=== PATIENT | male | born 1990 | race Two or more races ===

== ENCOUNTER → 2017-02-04 | Outpatient (CLI) | payer OTHER ==
[2017-02-04 12:43] LABS: HEPATITIS C VIRUS ANTIBODY Nonreactive (Nonreactive)
[2017-02-06 16:07] LABS: TESTOSTERONE FREE DIRECT 14.6 pg/mL (9.3-26.5); TESTOSTERONE TOTAL 309 ng/dL (348-1197)
== END | disposition home or self-care (01) ==
LOC: LAB 09:08
PROVIDERS: ATTEND Internal Medicine
DX: Z12.11 Encounter for screening for malignant neoplasm of colon (principal); Z13.220 Encounter for screening for lipoid disorders; Z12.5 Encounter for screening for malignant neoplasm of prostate; R53.82 Chronic fatigue, unspecified; M25.512 Pain in left shoulder; E29.1 Testicular hypofunction; R74.0 Nonspecific elevation of levels of transaminase and lactic acid dehydrogenase [LDH]
CPT/HCPCS: 36415; 80074; 80076; 82728; 83540; 83550; 84402; 84403; 84466

== ENCOUNTER → 2017-07-28 | Outpatient (CLI) | payer OTHER ==
[2017-07-28 10:18] LABS: HEMATOCRIT 46.5 % (39.2-51.8); HEMOGLOBIN 16.3 g/dL (13.7-18.0); WHITE BLOOD COUNT 5.8 x10^3/uL (3.4-10)
[2017-07-30 16:07] LABS: TESTOSTERONE FREE DIRECT 15.1 pg/mL (9.3-26.5)
== END | disposition home or self-care (01) ==
LOC: LAB 09:37
PROVIDERS: ATTEND Physician Assistant
DX: Z13.220 Encounter for screening for lipoid disorders (principal); Z12.11 Encounter for screening for malignant neoplasm of colon; Z12.5 Encounter for screening for malignant neoplasm of prostate; R53.82 Chronic fatigue, unspecified; E78.5 Hyperlipidemia, unspecified; M75.22 Bicipital tendinitis, left shoulder; M79.604 Pain in right leg; J30.9 Allergic rhinitis, unspecified; R74.0 Nonspecific elevation of levels of transaminase and lactic acid dehydrogenase [LDH]
CPT/HCPCS: 36415; 80061; 84153; 84402; 84403; 85025; G0103

== ENCOUNTER 2018-04-30 21:48 | Emergency (ER) | payer OTHER ==
[~2018-04-30] VITALS: Ht 175.3 cm; Wt 129.4 kg
[2018-04-30] MEDS ORDERED: DEXAMETHASONE 4 MG/ML, 1ML PO ONE (22:30)
[2018-04-30] MEDS ORDERED: ACETAMINOPHEN 325 MG TABLET PO ONE (22:30)
[2018-04-30] MEDS ORDERED: SODIUM CHLORIDE 0.9% 1,000ML IVBOLUS ONE (22:30)
[2018-04-30] MEDS ORDERED: KETOROLAC 30 MG/1 ML IVPush ONE (22:30)
[2018-04-30] MEDS ORDERED: DEXAMETHASONE 4 MG TABLET ONE (22:32)
[2018-04-30] MEDS ORDERED: KETOROLAC 30 MG/1 ML ONE (22:32)
[2018-04-30] MEDS ORDERED: ACETAMINOPHEN 500 MG TABLET ONE (22:32)
[2018-05-01 00:11] VITALS: BP 134/75
== END 2018-05-01 00:13 | disposition home or self-care (01) ==
LOC: ED 23:59
DX: J02.8 Acute pharyngitis due to other specified organisms (principal); B97.89 Other viral agents as the cause of diseases classified elsewhere; J45.909 Unspecified asthma, uncomplicated
CPT/HCPCS: 87081; 87880; 96374; 99284; J1100; J1885; J7030

== ENCOUNTER → 2019-04-06 | Outpatient (CLI) | payer OTHER | END | disposition home or self-care (01) | LOC: RAD 08:47 | PROVIDERS: ATTEND Family Medicine | DX: M25.511 Pain in right shoulder (principal) ==

== ENCOUNTER 2019-12-09 12:40 | Outpatient (CLI) | payer OTHER ==
[2019-12-09] MEDS ORDERED: LIDOCAINE-MPF 1%, 5ML ONE ×2 (12:57→13:14)
[2019-12-09] MEDS ORDERED: OMNIPAQUE 180 MG/ML, 10ML VIAL ONE (13:00)
== END 2019-12-09 23:59 | disposition home or self-care (01) ==
LOC: RAD 12:40
PROVIDERS: ATTEND Family Medicine Sports Medicine
DX: M75.51 Bursitis of right shoulder (principal); M25.411 Effusion, right shoulder
CPT/HCPCS: 23350; 73040; 73222; Q9965

== ENCOUNTER 2020-02-29 00:13 | Emergency (ER) | payer OTHER ==
[~2020-02-29] VITALS: Ht 175.3 cm; Wt 133.3 kg
--- NOTE | 2020-02-29 00:28 | NUR ---
[facility] TRIAGED PT
[2020-02-29] MEDS ORDERED: ACETAMINOPHEN 500 MG TABLET ONE (00:41)
[2020-02-29] MEDS ORDERED: ACETAMINOPHEN 500 MG TABLET PO ONE (01:00)
[2020-02-29 02:11] VITALS: BP 132/74
== END 2020-02-29 02:14 | disposition home or self-care (01) ==
LOC: ED 00:41
DX: U07.1 COVID-19 (principal); J12.89 Other viral pneumonia; J06.9 Acute upper respiratory infection, unspecified; R07.9 Chest pain, unspecified
CPT/HCPCS: 71045; 99284

== ENCOUNTER → 2021-04-10 | Outpatient (CLI) | payer OTHER ==
[2021-04-10 10:19] LABS: ALANINE AMINOTRANSFERASE 38 U/L (12-78); ALBUMIN 3.8 g/dL (3.4-5.0); CALCIUM 8.6 mg/dL (8.5-10.1); CREATININE 0.74 mg/dL (0.7-1.3)
[2021-04-10 10:21] LABS: ALKALINE PHOSPHATASE 100 U/L (45-117); BILIRUBIN,TOTAL 0.6 mg/dL (0.2-1.0); CHOL/HDL RATIO 3.8; CHOLESTEROL, TOTAL 134 mg/dL (140-239); HDL CHOL % 26 % (26-37); HDL CHOLESTEROL (DIRECT) 35 mg/dL (40-60); LDL CHOLESTEROL,CALCULATED 73 mg/dL (54-169); LDL/HDL RATIO 2.1 (0.5-3.0); TOTAL PROTEIN 7.1 g/dL (6.4-8.2); TRIGLYCERIDES 131 mg/dL (50-200); VLDL CHOLESTEROL 26 mg/dL (0-25)
[2021-04-10 10:31] LABS: ANION GAP 4 mmol/L (5-15); CHLORIDE 106 mmol/L (98-107)
== END | disposition home or self-care (01) ==
LOC: LAB 09:45
PROVIDERS: ATTEND Family Medicine
DX: I10 Essential (primary) hypertension (principal); R63.1 Polydipsia
CPT/HCPCS: 36415; 80053; 80061; 82043; 83036